=== PATIENT | female | born 1940 | race Caucasian/White ===

== ENCOUNTER → 2020-02-21 14:08 | Outpatient (BNVA) | payer MEDICARE, SELFPAY | PROVIDERS: Family Provider Nurse Practitioner Family; PCP Nurse Practitioner Family; Visit Provider Nurse Practitioner Family | DX: K57.50 Diverticulosis of both small and large intestine without perforation or abscess without bleeding (principal); R10.9 Unspecified abdominal pain; K57.92 Diverticulitis of intestine, part unspecified, without perforation or abscess without bleeding | CPT/HCPCS: 81000 ==

== ENCOUNTER 2020-04-18 11:38 | Outpatient (CLI) | payer MEDICARE, SELFPAY ==
--- NOTE | 2020-04-21 06:55 | ONC FU_ITS ---
Dr. García Patient Follow-Up Note Patient: Neisha Soria Unit #: [id number]: [id number] Dicatated By: Goran García M.D.Date of Visit:April 18, 2020 Onc Med Follow-up/Prog Note Chief Complaint: Breast cancer. 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 She had undergone right breast lumpectomy due to benign disease in 2007. Her routine annual mammogram in October 2012 had suspicious findings in the left breast. On 11/13/2012 she underwent an ultrasound guided biopsy of the left breast, revealing poorly differentiated adenocarcinoma. She then underwent a left breast lumpectomy with sentinel lymph node biopsy by Dr. Tesfaye on 01/22/2013. Her surgical pathology showed a moderately differentiated infiltrating ductal carcinoma, measuring 1.1 cm with negative margins. There was no involvement in 3 sentinel lymph nodes. Her prognostic markers were ER 99%, MI 62%, and HER-2/melvin 3+ by IHC. FISH was not available. The Ki-67 index was 19%. Thus, her disease was stage IA (pT1c, N0, M0). She was then given radiation to the left breast, completed on 04/16/2013 to a total dose of 6040 cGy. She was first seen on by Dr. Miramontes on 04/08/2013. She adamantly declined systemic chemotherapy or HER-2/melvin directed therapy. Adjuvant hormonal therapy with anastrozole was initiated in March of 2013. As of her follow-up visit in March 2018 she was doing well clinically with no evidence of recurrence of the breast cancer, and at that point she opted to stop her adjuvant therapy. Her other medical illnesses include hypertension, hyperlipidemia, and GERD. She reported having a history of osteoporosis, though her DEXA scan on 04/05/2013 showed normal bone mineral density. She is a nonsmoker. She is seen for a follow-up visit. She has been feeling good generally. She says her energy is pretty good. She has normal activity. ECOG score 0. She has good appetite. She has no fever, night sweats, or hot flashes. Since January or January her stomach has been a little tender . She has had intermittent, mild abdominal discomfort. The most significant has been in the right lower quadrant/right groin area. She has not been having any nausea and she does not complain of heartburn or acid reflux. Her bowels are occasionally a little tight. She otherwise does not have constipation and she has had no diarrhea. She has not been aware of any blood in the stool. She has no complaints. She has a little bit of joint pain. She has no headache or dizziness, and she has no focal neurologic symptoms. Medications: Aspirin 1 (81 mg) Tablet Oral daily, Cholecalciferol 1 (1000 Units) Tablet Oral daily, Restasis Eye Drop Ocular system Ophthalmic Take as Directed, Simvastatin (10 mg) Tablet Oral daily Allergies: No Known Allergies. Review of Systems: Constitutional - She is generally been feeling good. Her energy is good. She is does housework and some walking. Her activity is normal. Her appetite is good and weight is stable. No fever, chills, hot flashes, or night sweats. ECOG score 0, ENMT - No sinus congestion/drainage. No mouth sores. No sore throat or difficulty swallowing, Hematologic/Lymphatic - No abnormal bruising or bleeding, Respiratory - No shortness of breath. No cough. No pleuritic pain or hemoptysis, Cardiovascular - No angina pain. No palpitations, Gastrointestinal - She has been having some mild discomfort in the abdominal area, most significantly in the right lower quadrant/right groin area. No nausea or vomiting. No heartburn or acid reflux. No diarrhea or constipation. Her bowels are just occasionally a little tight. No blood in the stool or black stools, Genitourinary (F) - No dysuria or hematuria. No urinary frequency. No urgency or incontinence, Musculoskeletal - She has some mild joint pain, Integumentary - No skin complications, Neurologic - No headache or dizziness. No numbness/paresthesias or other focal neurologic symptoms, Psychiatric - No anxiety or depression. She sometimes has difficulty sleeping. Vital Signs: Performed on April 18, 2020 10:19 Height - 64.00 in Weight - 136 lbs (LOW) BSA - 1.66 sq.m BMI - 23.34 Temperature - 98.4 F Pulse - 66 /min Respiration - 16 /min BP - 122/58 mm(hg) O2 Sat - 95 % (LOW) Pain - 0 Physical Examination: Constitutional - She looks good generally, Eyes - Sclerae nonicteric. Conjunctivae clear, ENMT - No lesions noted in the oral cavity, Hematologic/Lymphatic - No cervical, clavicular, or axillary adenopathy, Respiratory - Lungs are clear with good air movement bilaterally, Cardiovascular - Heart rhythm is regular. There is no murmur, gallop, or rub noted, Breasts - She gets her breast exam with Donna [place], Abdomen - Mildly distended but soft. There is no abdominal tenderness. Liver and spleen are not enlarged. There is no abdominal mass or ascites noted and there is no inguinal adenopathy, Extremities - No edema. Posterior tibial pulses are palpable bilaterally, Integumentary - No suspicious skin lesions noted, Neurologic - No focal neurologic deficits noted. Impression: 1. 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 2. She underwent left breast lumpectomy and left axillary sentinel lymph node biopsy on 01/22/2013. 3. She completed radiation to the left breast on 04/16/2017 to a total dose of 6040 cGy. 4. Adjuvant hormonal therapy with anastrozole 1 mg daily began in March 2013, and she declined adjuvant chemotherapy or HER-2/melvin directed therapy. Her other medical illnesses include: 5. Hypertension. 6. Hyperlipidemia. 7. GERD. 8. She had normal bone mineral density by DEXA scan in March 2013. As of her follow-up visit in March 2018 she was doing well and she opted to stop her adjuvant therapy. During subsequent follow-up there is been no evidence of recurrence of the breast cancer. For the past several months she has been having some vague abdominal discomfort. She otherwise appears stable clinically. Plan: She remains on observation/expectant management for the breast cancer. She is going to be continuing her regular follow-up with Donna [place], which will include her breast exams and surveillance mammograms. She also will see Donna for further evaluation of the abdominal symptoms, as indicated. I will plan to see her again only as needed. Signed By: Goran García M.D. <<Signature on File>>
== END 2020-04-18 11:39 | disposition home or self-care (01) ==
LOC: ONCMED 11:38
PROVIDERS: PCP Nurse Practitioner Family; Visit Provider Internal Medicine Medical Oncology
DX: Z08 Encounter for follow-up examination after completed treatment for malignant neoplasm (principal); Z85.3 Personal history of malignant neoplasm of breast; R10.31 Right lower quadrant pain; I10 Essential (primary) hypertension; E78.5 Hyperlipidemia, unspecified; K21.9 Gastro-esophageal reflux disease without esophagitis; Z92.23 Personal history of estrogen therapy; Z92.3 Personal history of irradiation; Z79.82 Long term (current) use of aspirin
CPT/HCPCS: G0463

== ENCOUNTER → 2020-04-20 08:36 | Outpatient (BNVA) | payer MEDICARE, SELFPAY | PROVIDERS: PCP Nurse Practitioner Family; Visit Provider Nurse Practitioner Family | DX: Z98.890 Other specified postprocedural states (principal); R10.9 Unspecified abdominal pain; L98.9 Disorder of the skin and subcutaneous tissue, unspecified; Z12.39 Encounter for other screening for malignant neoplasm of breast; I10 Essential (primary) hypertension; Z51.81 Encounter for therapeutic drug level monitoring | CPT/HCPCS: 80053; 82550 ==

== ENCOUNTER 2020-04-27 12:00 | Outpatient (CLI) | payer MEDICARE, SELFPAY ==
[2020-04-27] MEDS: iohexol 300 mg/mL 50 mL Btl PO (13:23)
--- NOTE | 2020-04-27 13:30 | CT_ITS ---
WS: [id number] CT ABDOMEN AND PELVIS NONCONTRAST HISTORY: Abdominal pain. RIGHT lower quadrant pain for 3 weeks. Prior hysterectomy and appendectomy. TECHNIQUE: Imaging performed through the abdomen and pelvis. Coronal and sagittal reformats are submi tted. All CT scans at [facility] use at least one of these dose optimization techniques: automated exposure control; mA and/or kV adjustment per patient size (includes targeted exams where d ose is matched to clinical indication); or iterative reconstruction. DLP: 434.91 mGy.cm COMPARISON: 06/07/2016 Lower thorax: Lung bases are clear. Mild enlargement of the heart chambers. Small hiatal hernia. Liver: Normal, no mass or intrahepatic dilatation. Gallbladder: Unremarkable. Pancreas: Normal. Spleen: Granuloma. Normal size spleen. Adrenal glands: Normal. Right kidney: Normal size RIGHT kidney. No obstruction. Hyperdense masses from the superior and infer ior pole of the kidney. The largest in the inferior pole of the maximum diameter of 2.0 cm. There is an additional hyperdense mass from the upper pole and a smaller mass exophytic from the lower pole. T hese masses were not present in 2016. Left kidney: Normal size with no stones, mass or atrophy. Mild atherosclerosis with no aneurysm No free fluid, intraperitoneal air or significant lymphadenopathy. GI tract: Prior appendectomy. Mild fecal retention in the RIGHT colon. There are numerous diverticula in the descending and sigmoid colon. No evidence for an acute inflammatory process. Abdominal wall: Intact. Pelvis: Normal. Osseous structures: Mild LEFT convex curvature of the lumbar spine. No osteoblastic or osteolytic bon e disease. CT/CT abdomen pelvis wo con [id number] IMPRESSION: 1. Descending colon and sigmoid diverticulosis without acute diverticulitis. 2. Prior appendectomy. 3. Hyperdense masses within the RIGHT kidney. The largest from the lower pole measures 2.0 cm. These may be complex cysts but neoplasm needs to be excluded. New since 06/07/2016. Recommend follow-up renal ultrasound. 4. Small hiatal hernia.
== END 2020-04-27 12:01 | disposition home or self-care (01) ==
LOC: RAD 12:05
PROVIDERS: PCP Nurse Practitioner Family; Visit Provider Nurse Practitioner Family
DX: R10.9 Unspecified abdominal pain (principal); K57.30 Diverticulosis of large intestine without perforation or abscess without bleeding; N28.89 Other specified disorders of kidney and ureter; K44.9 Diaphragmatic hernia without obstruction or gangrene
CPT/HCPCS: 74176

== ENCOUNTER 2020-05-18 06:33 | Outpatient (CLI) | payer MEDICARE, SELFPAY ==
--- NOTE | 2020-05-18 07:15 | US_ITS ---
WS: [id number] Examination: Renal ultrasound evaluation of the bladder. HISTORY: Pain FINDINGS: The right kidney measured 9.20 x 4.61 x 4.31 cm cortex measured 1.07 cm. In the right kidne y along the upper pole is a cystic lesion and 2 cystic lesions in the lower pole of the right kidney. The lesion the upper pole measures 15.55 mm. Smaller cysts are seen on the inferior pole. Left kidney measured 9.60 x 4.33 x 3.76 cm. The cortex measured 1.10 cm normal appearance of the left kidney is seen. The bladder was poorly distended but showed no apparent lesions of the wall. US/US renal BI with bladder IMPRESSION: Benign cyst of the right kidney The left kidney was normal The bladder appeared to be normal.
== END 2020-05-18 06:34 | disposition home or self-care (01) ==
PROVIDERS: Family Provider Nurse Practitioner Family; PCP Nurse Practitioner Family; Visit Provider Nurse Practitioner Family
DX: N28.1 Cyst of kidney, acquired (principal)
CPT/HCPCS: 76770; 76857

== ENCOUNTER → 2020-06-22 11:15 | Outpatient (BNVA) | payer MEDICARE, SELFPAY | PROVIDERS: Family Provider Nurse Practitioner Family; PCP Nurse Practitioner Family; Visit Provider Urology | DX: N30.80 Other cystitis without hematuria (principal); N28.1 Cyst of kidney, acquired | CPT/HCPCS: 81001 ==

== ENCOUNTER → 2020-08-11 08:39 | Outpatient (BNVA) | payer MEDICARE, SELFPAY | PROVIDERS: Family Provider Nurse Practitioner Family; PCP Nurse Practitioner Family; Visit Provider Nurse Practitioner Family | DX: I10 Essential (primary) hypertension (principal); N39.0 Urinary tract infection, site not specified | CPT/HCPCS: 81000 ==

== ENCOUNTER 2020-08-16 06:56 | Outpatient (CLI) | payer MEDICARE, SELFPAY ==
--- NOTE | 2020-08-16 07:00 | US_ITS ---
WS: [id number] EXAM: RIGHT UPPER QUADRANT ULTRASOUND DATE OF EXAMINATION: 08/16/2020, 0650 hours COMPARISON: None. HISTORY: 79 years old with right upper quadrant pain. FINDINGS: Visualized pancreas is normal in appearance. Proximal inferior vena cava and aorta are normal in caliber. Liver echotexture is normal without evidence of mass lesion. Liver is not appreciably enlarged. [place] l venous flow is demonstrated by color flow and spectral Doppler with flow toward the liver. The gallbladder is normally distended without identifiable stones or wall thickening. Common bile duct diameter is estimated at 0.3 mm in maximum transverse caliber. The right kidney is estimated at 9.3 x 5.3 x 4.3 cm in size. Cortical thickness and echotexture are n ormal. There is a simple cyst off the inferior aspect of the right kidney 2 cm in maximal dimension. US/US gall bladder [id number] IMPRESSION: Simple cyst right kidney. Otherwise normal right upper quadrant ultrasound. Common bile duct 3 mm transverse caliber.
== END 2020-08-16 06:57 | disposition home or self-care (01) ==
PROVIDERS: PCP Nurse Practitioner Family; Visit Provider Nurse Practitioner Family
DX: R10.811 Right upper quadrant abdominal tenderness (principal); Q61.01 Congenital single renal cyst
CPT/HCPCS: 76705

== ENCOUNTER → 2020-08-25 11:25 | Outpatient (BNVA) | payer MEDICARE, SELFPAY | PROVIDERS: PCP Nurse Practitioner Family; Visit Provider Nurse Practitioner Family | DX: U07.1 COVID-19 (principal) | CPT/HCPCS: 87635 ==

== ENCOUNTER → 2021-09-17 13:40 | Outpatient (BNVA) | payer MEDICARE, SELFPAY | PROVIDERS: PCP Nurse Practitioner Family; Visit Provider Nurse Practitioner Family | DX: N30.00 Acute cystitis without hematuria (principal); R39.9 Unspecified symptoms and signs involving the genitourinary system | CPT/HCPCS: 81000 ==

== ENCOUNTER → 2021-11-15 08:15 | Outpatient (BNVA) | payer MEDICARE, SELFPAY | PROVIDERS: PCP Nurse Practitioner Family; Visit Provider Nurse Practitioner Family | DX: R53.83 Other fatigue (principal); I10 Essential (primary) hypertension; E78.5 Hyperlipidemia, unspecified | CPT/HCPCS: 80053; 80061; 84443; 85025 ==

== ENCOUNTER → 2022-01-08 15:50 | Outpatient (BNVA) | payer MEDICARE, SELFPAY | PROVIDERS: PCP Nurse Practitioner Family; Visit Provider Nurse Practitioner Family | DX: R10.9 Unspecified abdominal pain (principal) | CPT/HCPCS: 81000 ==

== ENCOUNTER 2022-02-05 12:09 | Outpatient (CLI) | payer MEDICARE, SELFPAY ==
--- NOTE | 2022-02-05 13:30 | CT_ITS ---
WS: [id number] CT ABDOMEN CONTRAST TECHNIQUE: Contrast enhanced CT of the abdomen with coronal and sagittal reformatted images. CLINICAL INFORMATION: R10.9 - Unspecified abdominal pain COMPARISON: Ultrasound May 18, [address] April 27, 2020 DLP: 591.[address] scans at [facility] use at least one of these dose optimization techniques: automated e xposure control; mA and/or kV adjustment per patient size (includes targeted exams where dose is matc hed to clinical indication); or iterative reconstruction. FINDINGS: Mild diffuse fatty infiltration of the liver. Normal portal vein and splenic vein. Normal gallbladder . Normal spleen. Small esophageal hiatal hernia. Mild fatty atrophy of the pancreas. Splenic artery c alcification. Lung bases are well aerated. Adrenal glands are normal. Normal renal parenchymal enhanc ement. Bilateral renal cortical atrophy. Bilateral renal cysts. Increased attenuation upper pole RIGH T renal lesion measuring 1.6 cm in the lower pole measuring 2.2 cm increased compared to April 27, 2020 . Recommend further evaluation with ultrasound. No hydronephrosis in either kidney. Adrenal glands are normal. Normal caliber abdominal aorta. Disc s pace narrowing worse at L3-L4 and L4-L5. Slight retrolisthesis L3 on L4. CT/CT abdomen w con* [id number] IMPRESSION: 1. Diffuse fatty infiltration of the liver. 2. Small esophageal hiatal hernia. 3. Bilateral renal cortical atrophy. Bilateral renal cysts. 4. No hydronephrosis in either kidney. 5. RIGHT upper pole and lower pole increased attenuation renal cystic lesions technically indeterminate but previously shown represent renal cysts in the anam or ultrasound. Recommend further evaluation with ultrasound. These have increas ed in size slightly since 2019.
[2022-02-05 13:47] LABS: Bilirubin Urine 1+ (Negative); Blood Urine Neg (Negative); Glucose Urine UA Norm (Normal); Ketones Urine Negative (Negative); Nitrate Urine Negative (Negative); Protein Urine Neg (Negative); Specific Gravity, Urine 1.025 (1.005-1.030); Urine Appearance Cloudy (CLEAR); Urine Color Yellow (Yellow); pH Urine 5 (5-7)
[2022-02-05 13:48] LABS: Add Urine Microscopic? YES; Bacteria Urine 1+ /hpf; Leukocyte Esterase Urine Negative (Negative); Mucus Urine 1+ /hpf; RBC Urine RARE /hpf (0-2); Squamous Epithelial Cell Urine 25-40 /hpf (0-5); Urobilinogen Urine Norm (Negative); WBC Urine 0-4 /hpf (0-5)
[2022-02-05 14:28] LABS: Blood Urea Nitrogen 16 mg/dL (8-23)
[2022-02-05] MEDS: iohexol 300 mg/mL 100 mL Btl IV (14:51)
[2022-02-05] MEDS: iohexol 300 mg/mL 50 mL Btl PO (14:52)
== END 2022-02-05 12:10 | disposition home or self-care (01) ==
PROVIDERS: PCP Nurse Practitioner Family; Visit Provider Nurse Practitioner Family
DX: Z01.818 Encounter for other preprocedural examination (principal); R10.9 Unspecified abdominal pain; K76.0 Fatty (change of) liver, not elsewhere classified; K44.9 Diaphragmatic hernia without obstruction or gangrene; N26.1 Atrophy of kidney (terminal); Q61.02 Congenital multiple renal cysts
CPT/HCPCS: 74160; 81001; 82565; 84520; 87086

== ENCOUNTER 2022-03-28 10:32 | Outpatient (CLI) | payer MEDICARE, SELFPAY ==
--- NOTE | 2022-03-28 11:15 | US_ITS ---
WS: [id number] RENAL ULTRASOUND HISTORY: N28.1 - Cyst of kidney, acquired COMPARISON: CT head 02/05/2022 and prior ultrasound 05/18/2020 TECHNIQUE: 2-D and color Doppler imaging of the kidney submitted. Right kidney: 8.9 cm x 5.1 cm x 4.5 cm. Mild atrophy with no hydronephrosis. Exophytic cyst from the inferior pole measures 2.2 x 1.8 x 2.3 c m. Only one cyst is identified. The remaining mildly heterogeneous cysts on the CT are not visualized by ultrasound. Left kidney: 9.0 cm x 4.1 cm x 4.2 cm. No hydronephrosis. Mild cortical thinning. Aorta: Normal. Urinary Bladder: Normal distention. US/US renal BI* [id number] IMPRESSION: 1. Simple cyst lower pole RIGHT kidney. The remaining indeterminate masses see n on the CT are not visualized by ultrasound. 2. The LEFT kidney is negative.
== END 2022-03-28 10:33 | disposition home or self-care (01) ==
PROVIDERS: PCP Nurse Practitioner Family; Visit Provider Nurse Practitioner Family
DX: N28.1 Cyst of kidney, acquired (principal)
CPT/HCPCS: 76770

== ENCOUNTER → 2022-10-10 15:04 | Outpatient (BNVA) | payer MEDICARE, SELFPAY | PROVIDERS: PCP Nurse Practitioner Family; Visit Provider Urology | DX: N39.0 Urinary tract infection, site not specified (principal) | CPT/HCPCS: 81003; 99213 ==

== ENCOUNTER → 2023-04-29 16:14 | Outpatient (BNVA) | payer MEDICARE, SELFPAY | PROVIDERS: PCP Nurse Practitioner Family; Visit Provider Nurse Practitioner Family | DX: I10 Essential (primary) hypertension (principal) | CPT/HCPCS: 80053; 80061 ==

== ENCOUNTER → 2023-08-12 14:12 | Outpatient (BNVA) | payer MEDICARE, SELFPAY | PROVIDERS: PCP Nurse Practitioner Family; Visit Provider Nurse Practitioner Family | DX: R05.9 Cough, unspecified; Z20.822 Contact with and (suspected) exposure to COVID-19 | CPT/HCPCS: 87400; 87426 ==

== ENCOUNTER → 2023-09-04 08:30 | Outpatient (BNVA) | payer MEDICARE, SELFPAY | PROVIDERS: PCP Nurse Practitioner Family; Visit Provider Nurse Practitioner Family | DX: E78.5 Hyperlipidemia, unspecified (principal); I10 Essential (primary) hypertension | CPT/HCPCS: 80053; 80061 ==

== ENCOUNTER → 2023-12-24 08:13 | Outpatient (BNVA) | payer MEDICARE, SELFPAY | PROVIDERS: PCP Nurse Practitioner Family; Visit Provider Nurse Practitioner Family | DX: E78.5 Hyperlipidemia, unspecified (principal) | CPT/HCPCS: 80061 ==

== ENCOUNTER → 2024-03-17 09:46 | Outpatient (BNVA) | payer MEDICARE, SELFPAY | PROVIDERS: PCP Nurse Practitioner Family; Visit Provider Nurse Practitioner Family | DX: I10 Essential (primary) hypertension (principal) | CPT/HCPCS: 80053 ==

== ENCOUNTER → 2024-08-26 08:44 | Outpatient (BNVA) | payer MEDICARE, SELFPAY | PROVIDERS: PCP Nurse Practitioner Family; Visit Provider Nurse Practitioner Family | DX: R10.9 Unspecified abdominal pain (principal) | CPT/HCPCS: 81000; 87086 ==

== ENCOUNTER → 2024-09-10 11:54 | Outpatient (BNVA) | payer MEDICARE, SELFPAY | PROVIDERS: PCP Nurse Practitioner Family; Visit Provider Nurse Practitioner Family | DX: I50.9 Heart failure, unspecified (principal); Z79.899 Other long term (current) drug therapy | CPT/HCPCS: 80053; 83880 ==

== ENCOUNTER 2024-10-14 09:40 | Outpatient (CLI) | payer MEDICARE, SELFPAY ==
--- NOTE | 2024-10-14 09:56 | XRR_ITS ---
PROCEDURE INFORMATION: Exam: XR Chest Exam date and time: 10/14/2024 9:59 AM Age: 84 years old Clinical indication: Cough; Additional info: R05.3 - chronic cough TECHNIQUE: Imaging protocol: Radiologic exam of the chest. Views: 2 views. COMPARISON: CR XR chest 2V* [id number] 11/13/2019 11:54 AM FINDINGS: Lungs: Unremarkable. No consolidation. Pleural spaces: Unremarkable. No pleural effusion. No pneumothorax. Heart/Mediastinum: The heart is slightly enlarged. There is calcified plaque involving the aorta. Bones/joints: Unremarkable. XR/XR chest 2V* [id number] IMPRESSION: 1. Mild cardiomegaly.
--- NOTE | 2024-10-14 10:30 | CT_ITS ---
WS: [id number] CT ABDOMEN WITH CONTRAST HISTORY: R10.9 - Unspecified abdominal pain Contiguous single phase 5 mm axial imaging performed to the abdomen. Oral contrast has been provided. Coronal and sagittal reformats are submitted. All CT scans at [facility] use at least one of these dose optimization techniques: automated exposure control; mA and/or kV adjustment per patient size (includes targeted exams where dose is matched to clinical indication); or iterative reconstruct ion. IV CONTRAST: Omnipaque 350; 100 mL IV. Oral contrast: Yes. DLP: 189.36 mGy.cm COMPARISON: 02/05/2022 Lower thorax: Lung bases are clear. Heart is normal size. Small hiatal hernia. Liver/biliary system: Normal size with no intrahepatic dilatation. Gallbladder: Normal. No gallstones or wall thickening. No pericholecystic fluid. Pancreas: Normal size pancreas and pancreatic duct. No adjacent inflammation. Spleen: Normal size spleen. No mass or infarct. Adrenal glands: Normal. Right kidney: Normal size RIGHT kidney. There are multiple complex low-attenuation masses associated with the RIGHT kidney. These have minimally increased in size since 02/05/2022. Largest mass noted to b e a cyst on a prior ultrasound from the lower pole measures 2.8 x 2.5 cm. Due to long-term stability of all of these renal masses these are probably complex cysts. Left kidney: Scattered subcentimeter hypodensities without increase in size. Aorta: Mild atherosclerotic plaque. Small amount of plaque at the origin of the SMA causing a mild ob struction. Lymphadenopathy: None. Free fluid: None. GI tract: As visualized within the abdomen negative. Abdominal wall: Unremarkable abdominal wall. No hernia. Visualized osseous structures: Stable sclerotic focus in L3. No fractures. CT/CT abdomen w con* [id number] IMPRESSION: 1. Small hiatal hernia. 2. Bilateral renal low-attenuation masses have minimally increased in size sin ce 02/05/2022. These are probably complex cysts. No renal obstruction. 3. Negative gallbladder.
[2024-10-14 10:35] LABS: Basophils # 0.1 10^3/uL (0.0-0.1); Basophils % 0.7 %; Eosinophils # 0.1 10^3/uL (0.0-0.8); Eosinophils % 1.4 %; Lymphocytes # 1.3 10^3/uL (0.8-4.8); Lymphocytes % 16.5 %; Mean Corpuscular HGB Conc 32.5 g/dL (30-55); Mean Corpuscular Hemoglobin 31.4 pg (27-33); Mean Corpuscular Volume 96.5 fl (85-98); Monocytes # 0.6 10^3/uL (0.2-0.9); Monocytes % 7.8 %; Neutrophils # 5.88 10^3/uL (1.8-7.7); Neutrophils % 73.1 %; Nucleated Red Blood Cells % 0 %; Platelet Count 273 10^3/cmm (157-399); Red Blood Count 4.56 10^6/uL (3.85-5.65); Red Cell Distribution Width 13.3 % (12.1-15.1); White Blood Count 8.05 10^3/uL (3.29-11.43)
[2024-10-14] MEDS: iohexol 350 mg/mL 500 mL Btl (per mL) IV (10:37)
== END 2024-10-14 09:41 | disposition home or self-care (01) ==
PROVIDERS: PCP Nurse Practitioner Family; Visit Provider Nurse Practitioner Family
DX: Q61.02 Congenital multiple renal cysts (principal); K44.9 Diaphragmatic hernia without obstruction or gangrene; I70.0 Atherosclerosis of aorta; R10.9 Unspecified abdominal pain; R05.3 Chronic cough; J06.9 Acute upper respiratory infection, unspecified
CPT/HCPCS: 71046; 74160; 85025

== ENCOUNTER → 2024-11-02 14:20 | Outpatient (BNVA) | payer MEDICARE, SELFPAY | PROVIDERS: PCP Nurse Practitioner Family; Visit Provider Nurse Practitioner Family | DX: I50.9 Heart failure, unspecified (principal); R42 Dizziness and giddiness | CPT/HCPCS: 80053; 83550; 83735; 84439; 84443; 85025 ==

== ENCOUNTER → 2025-03-09 15:29 | Outpatient (BNVA) | payer MEDICARE, SELFPAY | PROVIDERS: PCP Nurse Practitioner Family; Visit Provider Nurse Practitioner Family | DX: N39.0 Urinary tract infection, site not specified (principal) | CPT/HCPCS: 81000; 87086 ==

== ENCOUNTER → 2025-05-19 08:33 | Outpatient (BNVA) | payer MEDICARE, SELFPAY | PROVIDERS: PCP Nurse Practitioner Family; Visit Provider Nurse Practitioner Family | DX: I10 Essential (primary) hypertension (principal); N39.0 Urinary tract infection, site not specified | CPT/HCPCS: 80053; 80061; 81000; 87086 ==

== ENCOUNTER → 2025-07-22 11:16 | Outpatient (BNVA) | payer MEDICARE, SELFPAY | PROVIDERS: PCP Nurse Practitioner Family; Visit Provider Nurse Practitioner Family | DX: N39.0 Urinary tract infection, site not specified (principal) | CPT/HCPCS: 81000; 87086 ==

== ENCOUNTER 2025-08-03 09:30 | Outpatient (CLI) | payer MEDICARE, SELFPAY ==
--- NOTE | 2025-08-03 10:00 | FL_ITS ---
WS: [id number] Modified barium swallow, 08/03/2025 Clinical Data: T17.320A - Food in larynx causing asphyxiation, initial e... Comparison: None. Fluoroscopy time: 3min [id number] # of spot films: Findings: The patient had premature spillage of food to the vallecula and of liquids to the piriformis. No aspiration or penetration occurred. Material did stick to the vallecula and swallowing did not clear much of the material. The barium tablet passed normally from the oral cavity into the hypopharynx then the esophagus and finally the stomach. FL/FL barium swallow modifd [id number] Impression: 1. Premature spillage of food to the vallecula and liquids to the piriforms. 2. No aspiration or penetration. 3. Material did remain in the vallecula even after multiple swallows.
== END 2025-08-03 09:31 | disposition home or self-care (01) ==
LOC: RAD 09:31
PROVIDERS: PCP Nurse Practitioner Family; Visit Provider Nurse Practitioner Family
DX: T17.320A Food in larynx causing asphyxiation, initial encounter (principal); W44.F3XA Food entering into or through a natural orifice, initial encounter; R13.10 Dysphagia, unspecified; R13.12 Dysphagia, oropharyngeal phase
CPT/HCPCS: 74230; 92611

== ENCOUNTER → 2025-09-05 09:41 | Outpatient (BNVA) | payer MEDICARE, SELFPAY | PROVIDERS: PCP Nurse Practitioner Family; Visit Provider Nurse Practitioner Family | DX: N39.0 Urinary tract infection, site not specified (principal) | CPT/HCPCS: 81000; 87086 ==

== ENCOUNTER 2025-09-23 07:46 | Outpatient (CLI) | payer MEDICARE, SELFPAY ==
--- NOTE | 2025-09-23 07:52 | FL_ITS ---
WS: [id number] Barium swallow and esophagram, 09/23/2025 Clinical Data: DYSPHAGIA,PHARYNGOESOPHAGEAL Comparison: None. Fluoroscopy time: 1min [id number] # of spot films: 42 Findings: The patient swallowed the thick and thin barium, and it flowed through the hypopharynx without hesitation. No stricture, mass, polyp or erosion was seen. There was deviation of the hypopharynx to the left. The patient may have enlargement of the right lobe of the thyroid. No aspiration or penetration was seen. The barium entered the esophagus and there was normal motility throughout. No stricture, polyp, mass, erosion or ulcer was noted. There was a small sliding hiatal hernia with a Schatzki ring. Minimal gastroesophageal reflux did occur. The barium passed normally into the stomach. FL/FL barium swallow [id number] Impression: 1. Deviation of the hypopharynx to the left and there may be right thyroid lobe enlargement. 2. Small hiatal hernia with minimal gastroesophageal reflux.
--- NOTE | 2025-09-23 07:52 | CTR_ITS ---
PROCEDURE INFORMATION: Exam: CT Neck With Contrast Exam date and time: 09/23/2025 8:15 AM Age: 85 years old Clinical indication: Dysphagia / difficulty swallowing; HX of breast cancer; Additional info: Dysphagia, pharyngoesophageal TECHNIQUE: Imaging protocol: Computed tomography of the neck with contrast. Radiation optimization: All CT scans at this facility use at least one of these dose optimization techniques: automated exposure control; mA and/or kV adjustment per patient size (includes targeted exams where dose is matched to clinical indication); or iterative reconstruction. Contrast material: OMNI 350; Contrast volume: 100 ml; Contrast route: INTRAVENOUS (IV); COMPARISON: RF FL barium swallow [id number] 09/23/2025 8:00 AM RADIATION DOSE METRICS: Total DLP (mGy-cm): 223.14 FINDINGS: Brain: Normal to the extent seen. No abnormal enhancement. Intracranial vasculature: Normal to the extent seen. Orbital cavities: Orbits and globes: Bilateral cataract surgery. Paranasal sinuses: Normal to the extent seen. Salivary glands: The upper aerodigestive tract is remarkable for absence of the left submandibular gland. Pharynx: Unremarkable. No significant tonsillar enlargement. Larynx: Unremarkable. Epiglottis is normal. Thyroid: Two, large right thyroid nodules are identified, 1 anteriorly measuring up to 21.1 mm in diameter and 1 posteriorly measuring up to 44 mm in diameter. The more posterior thyroid nodule directly impinges upon the esophagus. Trachea: Visualized trachea is unremarkable. Lungs: Lung apices are unremarkable. Lymph nodes: No cervical adenopathy is seen. Bones/joints: The skull base is unremarkable. The cervical spine shows C4-C5 greater than C5-C6 and C6-C7 degenerative disc disease. There is no acute fracture, lytic, or blastic lesion. No anteriorly directed endplate osteophytes are present. There is no abnormal stylohyoid ligament calcification. Soft tissues: Unremarkable. No significant soft tissue swelling. CT/CT neck w con* [id number] IMPRESSION: 1. Two large right thyroid nodules as detailed above, in the more posterior of the 2 showing inferior and medially extension causing effacement of the esophagus. 2. 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 3. No evidence of cervical adenopathy. COMMENTS: Consistent with the [employer]'s Incidental Findings Committee white paper (J Am Abelino Radiol 2015): In patients aged 35 years and older with an incidental thyroid nodule equal to or greater than 1.[address], MRI or extrathyroidal US, further evaluation with dedicated thyroid US is recommended for patients with normal life expectancy and without comorbidities. For smaller nodules without suspicious features, no further evaluation or follow up is recommended.
[2025-09-23] MEDS: iohexol 350 mg/mL 500 mL Btl (per mL) IV (08:07)
[2025-09-23 08:23] LABS: Blood Urea Nitrogen 13 mg/dL (8-23)
== END 2025-09-23 07:47 | disposition home or self-care (01) ==
LOC: RAD 07:47
PROVIDERS: PCP Nurse Practitioner Family; Visit Provider Otolaryngology
DX: R13.14 Dysphagia, pharyngoesophageal phase (principal); Z85.3 Personal history of malignant neoplasm of breast; E04.2 Nontoxic multinodular goiter; R93.89 Abnormal findings on diagnostic imaging of other specified body structures; Z98.42 Cataract extraction status, left eye; Z98.41 Cataract extraction status, right eye; M47.812 Spondylosis without myelopathy or radiculopathy, cervical region; R93.3 Abnormal findings on diagnostic imaging of other parts of digestive tract; K44.9 Diaphragmatic hernia without obstruction or gangrene; Z90.09 Acquired absence of other part of head and neck; M50.33 Other cervical disc degeneration, cervicothoracic region
CPT/HCPCS: 70491; 74220; 82565; 84520

== ENCOUNTER → 2025-10-06 07:08 | Outpatient (BNVA) | payer MEDICARE, SELFPAY | PROVIDERS: PCP Nurse Practitioner Family; Visit Provider Nurse Practitioner Family | DX: N39.0 Urinary tract infection, site not specified (principal) | CPT/HCPCS: 81000; 87086 ==

== ENCOUNTER 2025-10-17 12:20 | Outpatient (CLI) | payer MEDICARE, SELFPAY ==
--- NOTE | 2025-10-17 13:00 | US_ITS ---
WS: [id number] RENAL ULTRASOUND HISTORY: N39.0 - Urinary tract infection, site not specified COMPARISON: 03/28/2022, CT 10/14/2024 TECHNIQUE: 2-D and color Doppler imaging of the kidney submitted. Right kidney: 8.8 cm x 4.5 cm x 4.8 cm. Cortex: 1.0 cm Low normal size kidney. Mild cortical thinning and increased echogenicity. Reidentified is a slightly lobulated cyst from the lower pole measuring 2.4 x 2.3 x 2.8 cm. There are a few additional cortical cyst. No solid mass identified. Left kidney: 9.5 cm x 3.2 cm x 5.0 cm. Cortex: 1.0 cm Normal size kidney. Mild diffuse cortical thinning and increased echogenicity. No solid mass or hydronephrosis. Previously noted cortical cyst by CT are not identified by ultrasound. Aorta: Normal. Urinary Bladder: Urinary bladder is not distended. US/US renal BI* [id number] IMPRESSION: 1. No renal obstruction or hydronephrosis. 2. Low normal size RIGHT kidney with diffuse cortical thinning. 3. Mild chronic medical renal disease. 4. Cortical cyst RIGHT kidney. Stable since 03/28/2022.
== END 2025-10-17 12:21 | disposition home or self-care (01) ==
LOC: RAD 12:22
PROVIDERS: PCP Nurse Practitioner Family; Visit Provider Nurse Practitioner Family
DX: N39.0 Urinary tract infection, site not specified (principal); N28.89 Other specified disorders of kidney and ureter; N18.9 Chronic kidney disease, unspecified; N28.1 Cyst of kidney, acquired
CPT/HCPCS: 76770

== ENCOUNTER → 2025-11-07 10:05 | Outpatient (BNVA) | payer MEDICARE, SELFPAY | PROVIDERS: PCP Nurse Practitioner Family; Visit Provider Nurse Practitioner Family | DX: N39.0 Urinary tract infection, site not specified (principal); N76.0 Acute vaginitis | CPT/HCPCS: 81000; 87070; 87086; 87205 ==